=== PATIENT | female | born 1985 | race Caucasian/White ===

== ENCOUNTER 2023-09-28 20:41 | Emergency (ER) | payer SELFPAY ==
[2023-09-28 21:45] LABS: SARS-CoV-2 NAA Rapid Test Not Detected (NotDetected)
[2023-09-28] MEDS ORDERED: Ketorolac Tromethamine 30 MG/ML VIAL ONE (22:18)
[2023-09-28] MEDS ORDERED: Acetaminophen 500 MG TAB ONE (22:18)
[2023-09-28] MEDS ORDERED: Ondansetron ODT 4 MG TAB ONE (23:03)
[2023-09-28] MEDS ORDERED: Benzonatate 100 MG CAP ONE (23:03)
[2023-09-28 23:35] LABS: Bacteria/HPF None Seen HPF (None Seen); Bilirubin Negative (Negative); Blood, Urine Negative (Negative); CAUTI Indications for Culture Fever or rigors; Clarity Clear (Clear); Glucose, Urine (Dipstick) Normal (Negative); Ketone, Urine 20 mg/dL (Negative); Leukocyte Negative Leu/uL (Negative); Mucous/LPF Rare LPF (<2+); Nitrite Negative (Negative); Protein, Urine (Dipstick) 30 mg/dL (Neg-Trace); RBC/HPF 0-3 HPF (0-3); Specific Gravity, Urine 1.037 (1.002-1.036); Squamous Epithelial 0-3 HPF (0-3); WBC/HPF 0-3 HPF (0-3)
[2023-09-28 23:38] LABS: Pregnancy Test - Urine (BHCG) Negative (Negative); Pregu Control Background? CLEAR/WHITE (CLR/WHITE); Pregu Control Bar Appear? YES (CONTROL BAR); Specific Gravity 1.037 (1.002-1.036); Urine Culture Reflex No No
== END 2023-09-28 23:40 | disposition home or self-care (01) ==
LOC: ERS 20:41
DX: J10.1 Influenza due to other identified influenza virus with other respiratory manifestations (principal); Z20.822 Contact with and (suspected) exposure to COVID-19
CPT/HCPCS: 71045; 81001; 81025; 96372; J1885; Q0162